=== PATIENT | male | born 1995 | race Caucasian/White ===

== ENCOUNTER 2023-05-08 20:20 | Emergency (ER) | payer OTHER ==
--- NOTE | 2023-05-08 20:27 | ERPHSYRPT ---
- History of Present Illness Time Seen by Provider: 05/08/23 20:27 Source: patient Exam Limitations: no limitations Physician History: This is a 27-year-old white male who presents from the [facility] with a laceration to his upper right arm. 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 The officer from the halfway stated that they did find a knife blade that may have been involved with the cutting of this approximately 7 to 8 cm right upper arm laceration. There is a tourniquet present there was some skin edge bleeding that was fairly significant at the halfway per her report. Patient's tetanus status is up-to-date per the patient. Timing/Duration: today Quality: painful Severity: mild Location: extremities (Right upper arm) Associated Symptoms: denies symptoms Allergies/Adverse Reactions: No Known Drug Allergies Allergy (Unverified 05/08/23 20:24) Home Medications: No Reportable Medications [No Reported Medications] 05/08/23 [History] Travel Risk - International Travel Have you traveled outside of the country in past 3 weeks: No - Coronavirus Screening Are you exhibiting any of the following symptoms?: No Close contact with a COVID-19 positive Pt in past 14-21 Days: No - Review of Systems Constitutional: No Symptoms Eyes: No Symptoms Ears, Nose, & Throat: No Symptoms Respiratory: No Symptoms Cardiac: No Symptoms Abdominal/Gastrointestinal: No Symptoms Genitourinary Symptoms: No Symptoms Musculoskeletal: No Symptoms Skin: Other (Laceration right upper arm) Neurological: No Symptoms Psychological: No Symptoms Endocrine: No Symptoms Hematologic/Lymphatic: No Symptoms Immunological/Allergic: No Symptoms All Other Systems: Reviewed and Negative - Past Medical History Pertinent Past Medical History: Yes - Past Surgical History Past Surgical History: Yes - Nursing Vital Signs Nursing Vital Signs: Initial Vital Signs Temperature 98.6 F 05/08/23 20:24 Pulse Rate 89 05/08/23 20:24 Respiratory Rate 16 05/08/23 20:24 Blood Pressure 127/89 05/08/23 20:24 O2 Sat by Pulse Oximetry 98 05/08/23 20:24 Pain Scale Pain Intensity 0 - Physical Exam General Appearance: no apparent distress, alert, anxiety Eye Exam: PERRL/EOMI, eyes nml inspection Ears, Nose, Throat Exam: normal ENT inspection, moist mucous membranes Neck Exam: normal inspection, non-tender, supple, full range of motion Respiratory Exam: airway intact, No chest tenderness, No respiratory distress Gastrointestinal/Abdomen Exam: No tenderness Rectal Exam: not done Back Exam: normal inspection, normal range of motion, No CVA tenderness, No vertebral tenderness Extremity Exam: amputations (Above the right elbow amputation (chronic)), lacerations (Seven to 8 cm right upper arm laceration with tourniquet in place.) Neurologic Exam: alert, oriented x 3, cooperative, hosiery mater II-XII nml as tested, normal mood/affect Skin Exam: laceration (Laceration as above. No foreign body present.) Lymphatic Exam: No adenopathy SpO2 Interpretation: normal O2 Delivery: Room Air Procedures - Laceration/Wound Repair Right Arm Time of Procedure: 21:00 Wound Location: Right, upper arm Wound Length (cm): 8 Wound's Depth, Shape: superficial, linear, into subcut Wound Explored: clean (Explored to the base in a bloodless field. Although there is caudal arterial skin edge bleed.) Irrigated: Yes Hibiclens Prep: Yes Anesthesia: 1% lidocaine w/ Epi (8 cc used 2 an exercise the skin and subcutaneous tissue) Volume Anesthetic (ccs): 8 Wound Repaired With: Joanne (14 used) Layer Closure?: No Progress: 05/08/23 21:24 After the laceration was closed with 14 skin joanne. The area was cleaned with Hibiclens solution and dried with 4 x 4 gauze. Thin layer of bacitracin ointment was applied. A pressure dressing was applied with nonstick gauze, Curlex and ABD pad and tape. There were no complications patient Toller procedure well. - Course Nursing assessment & vital signs reviewed: Yes Ordered Tests: Medication Summary Discontinued Medications Generic Name Dose Route Start Last Admin Trade Name Freq PRN Reason Stop Dose Admin Bacitracin Zinc Confirm 05/08/23 20:54 Bacitracin Packet 1 Each Pckt Administered 05/08/23 20:55 Dose 1 each .ROUTE .STK-MED ONE Lidocaine/Epinephrine Confirm 05/08/23 20:45 Lidocaine Hcl/Epinephrine 1% 20 Ml Administered 05/08/23 20:46 Dose 1 ml .ROUTE .STK-MED ONE - Progress Progress Note: 05/08/23 21:25 This patient's medical issue is 1 of low complexity. The level of complexity and the work-up performed was based on review the patient's past medical history, medication list, drug allergy list, history present illness, physical findings on examination. No laboratory or radiographic studies necessary. The wound was closed as described above. Patient is discharged to home with instructions to have the joanne removed in 8 to 10 days. He is to keep the pressure dressing in place till the evening of 05/09/2023. Counseled pt/family regarding: diagnosis, need for follow-up Medical Desision Making - Independent Historian Additional History obtained from: [employer] (food safety officer) - Diagnostic Testing Diagnostic test were ordered, analyzed, and reviewed by me: No - Risk of complications Minimal Risk: Minimal risk of morbidity - Departure Departure Disposition: [facility] Clinical Impression: Laceration of right upper arm Condition: Stable Critical Care Time: No Referrals: DOCTOR,NO FAMILY [Primary Care Provider] - Follow up/PCP as directed Additional Instructions: Keep current pressure dressing in place until the evening of 05/09/2023. May remove the dressing tomorrow evening as discussed. May wash the area thereafter once a day with soap and water and cover with a thin layer of antibiotic and rebandage daily. Use Tylenol and ibuprofen for pain control. Staple removal in 8 to 10 days.
[2023-05-08] MEDS ORDERED: XYLOCAINE 1%/Epi 1:100000 MDV 20 ML ONE (20:45)
[2023-05-08] MEDS ORDERED: BACIGUENT PACKET ONE (20:54)
[2023-05-08 21:12] VITALS: BP 129/75; PULSE 91; O2SAT 99
== END 2023-05-08 21:33 | disposition home or self-care (01) ==
LOC: ED 20:20
DX: S41.111A Laceration without foreign body of right upper arm, initial encounter (principal); W26.0XXA Contact with knife, initial encounter; Y92.149 Unspecified place in prison as the place of occurrence of the external cause
CPT/HCPCS: 12004; 99281; A9270-GY